=== PATIENT | male | born 1955 | race Caucasian/White ===

== ENCOUNTER → 2018-04-29 | Outpatient (CLI) | payer OTHER | LOC: BMCIMAGING 09:57 | PROVIDERS: ATTEND Family Medicine | DX: Z13.820 Encounter for screening for osteoporosis (principal); M85.89 Other specified disorders of bone density and structure, multiple sites ==

== ENCOUNTER → 2018-12-26 | Outpatient (CLI) | payer OTHER | LOC: EMCIMAGING 11:01 | PROVIDERS: ATTEND Family Medicine | DX: N50.811 Right testicular pain (principal) | CPT/HCPCS: 76870-PN ==